=== PATIENT | female | born 1990 | race Asian ===

== ENCOUNTER 2017-01-23 09:43 | Outpatient (CLI) | payer OTHER ==
--- NOTE | 2017-01-23 10:42 | Non Stress Test Report ---
Non Stress Test Datetime Report Generated by CPN: 01/23/2017 10:42 DEMOGRAPHIC EGA NST: 40.5 INDICATION Indication for Study: Ordered by Provider Indication for Study (NST) Other: Repeat NST, Post dates VITAL SIGNS Temperature - NST: 98.1 Pulse - NST: 85 RESP - NST: 16 NBPSYS NST: 121 NBPDIA NST: 69 MONITORING Monitor Explained: Monitor Explained; Test Explained; Patient Verbalized Understanding Time on Monitor: 01/23/2017 09:56 Time off Monitor: 01/23/2017 10:30 NST Duration: 34 NST INTERVENTIONS NST Interventions: PO Hydration Physician Notified NST: Dr. Tes BABY A: [id number] BABY A Movement : Present Contraction Frequency : Irregular FHR Baseline : 150 Accelerations : 15X15 Decelerations : None Variability : Moderate 6-25bpm NST Review: Meets Criteria for Reactive NST NST Review and Verified By : BL ROULUND, RN NST Results: Reactive NST COMMENTS NST Comments: Labor signs and kick counts carenotes given to patient. All questions answered. NST REPORT Report Trigger: Send Report
== END 2017-01-23 10:34 | disposition home or self-care (01) ==
LOC: LC 09:43
PROVIDERS: ATTEND Obstetrics & Gynecology
PROC: 4A1HXCZ Monitoring of Products of Conception, Cardiac Rate, External Approach (ICD-10-PCS; principal; 2017-01-23)
DX: O48.0 Post-term pregnancy (principal); Z3A.40 40 weeks gestation of pregnancy
CPT/HCPCS: 59025

== ENCOUNTER 2017-01-25 22:38 | Inpatient (IN) | payer OTHER ==
[2017-01-25] MEDS ORDERED: RINGERS SOLUTION,LACTATED 300 ML IV ONE (22:57)
[2017-01-25] MEDS ORDERED: MAG HYDROX/AL HYDROX/SIMETH SUSP 30 ML UDCUP PO PRN (22:57)
[2017-01-25] MEDS ORDERED: ZOLPIDEM TARTRATE 5 MG TABLET PO PRN (22:57)
[2017-01-25] MEDS ORDERED: DINOPROSTONE 10 MG VAGINAL INSERT.SR PV ONE (22:57)
[2017-01-25] MEDS ORDERED: ACETAMINOPHEN 325 MG TABLET PO PRN (22:57)
[2017-01-25 23:25] LABS: ABSOLUTE EOSINOPHILS # (AUTO) 0.1 10^3/uL (0.0-0.6); ABSOLUTE LYMPHOCYTES (AUTO) 2.4 10^3/uL (0.5-4.7); ABSOLUTE MONOCYTES (AUTO) 0.7 10^3/uL (0.1-1.4); ABSOLUTE NEUT (AUTO) 7.4 10^3/uL (1.7-8.2); BASOPHILS % (AUTO) 0.4 % (0-2); EOSINOPHILS % (AUTO) 1.4 % (0-6); HEMATOCRIT 38.7 % (36.0-47.0); HEMOGLOBIN 13.1 g/dL (12.0-15.5); HGB HCT DIFFERENCE 0.6; LYMPHOCYTES % (AUTO) 22.1 % (13-45); MEAN CORPUSCULAR HGB CONC 33.8 g/dL (32.0-36.0); MEAN CORPUSCULAR VOLUME 92 fl (80-97); MONOCYTES % (AUTO) 6.8 % (3-13); RED BLOOD COUNT 4.22 10^6/uL (3.72-5.28); RED CELL DISTRIBUTION WIDTH 15.3 % (11.5-14.0); SEGMENTED NEUTROPHILS % (AUTO) 69.3 % (42-78); WHITE BLOOD COUNT 10.7 10^3/uL (4.0-10.5)
[2017-01-25] MEDS ORDERED: ZOLPIDEM TARTRATE 5 MG TABLET ONE (23:35)
[2017-01-25] MEDS ORDERED: DINOPROSTONE 10 MG VAGINAL INSERT.SR ONE (23:36)
[2017-01-25] MEDS: RINGERS SOLUTION,LACTATED 1,000 ML IV PRN (23:38)
[2017-01-25 23:42] LABS: APPEARANCE,URINE CLOUDY; BILIRUBIN,URINE NEGATIVE (NEGATIVE); GLUCOSE, URINE NEGATIVE (NEGATIVE); KETONES,URINE NEGATIVE (NEGATIVE); LEUKOCYTE ESTERASE,URINE MODERATE (NEGATIVE); NITRITE,URINE NEGATIVE (NEGATIVE); PROTEIN,URINE NEGATIVE (NEGATIVE); URINE SPECIFIC GRAVITY 1.016; UROBILINOGEN,URINE NEGATIVE mg/dL (<2.0)
[2017-01-25 23:56] LABS: URINE BARBITURATES SCREEN NEGATIVE; URINE METHADONE SCREEN NEGATIVE; URINE OPIATES LOW NEGATIVE; URINE PHENCYCLIDINE SCREEN NEGATIVE
[2017-01-26] MEDS ORDERED: OXYTOCIN/NORMAL SALINE 20 UNIT/1,000 ML RTUINJ ONE ×2 (10:23→20:10)
--- NOTE | 2017-01-26 12:41 | L&D Progress Notes ---
PROGRESS NOTES Datetime Report Generated by CPN: 01/26/2017 12:41 PROGRESS NOTE Impression Other: IOL-stable Procedures- Other: rounds Plan: Continue Present Management; Induction Informed Consent Obtained: Vaginal Delivery; Induction of Labor; Risks, Benefits and Alternatives Discussed Informed Consent Obtained: Vaginal Delivery; Induction of Labor; Risks, Benefits and Alternatives Discussed Vital Signs : Reviewed; Within Normal Limits Comment: S: reports mild abdominal discomfort but no cramping yet. O: VSS, UC 2-3, pit @ 12mu/min A: IUP @ 41w1d -stable P: continue IOL, reasses as clinicially indicated or once pitocin has reached 20mu/min. Pt. and asked questions and verbalized understanding. VAGINAL EXAM Dilatation: 2 Effacement: 70 Station: -2 MEMBRANES Membranes: Intact Membranes: Intact FETUS A FHR - Baseline: 150 Monitoring: External US Variability: Moderate 6-25bpm Decelerations: Variable FHR Category: Category II Presentation: Vertex SIGNATURE SIGNATURE: [id number];[id number] SIGNATURE: [id number] Assignment: Naomi Martinez MD Signature: with User ID: Vlad : with User ID: Vlad
--- NOTE | 2017-01-26 14:30 | L&D Progress Notes ---
PROGRESS NOTES Datetime Report Generated by CPN: 01/26/2017 14:30 PROGRESS NOTE Impression Other: IOL-progressing well Procedures: Artificial ROM; Sterile Vag Exam Plan: Continue Present Management Informed Consent Obtained: Vaginal Delivery; Induction of Labor; Risks, Benefits and Alternatives Discussed Vital Signs : Reviewed; Within Normal Limits Comment: S: comfortable but starting to feel contractions, continues to desire unmedicated O: VSS, UC 1.5-3, pit @ 16mu/min, cervix as stated above A: IOL at 41w-progressing, AROM-meconium stained fluid P: continue IOL, reassess clinically indicated earlier prn. Pain medication as desired. VAGINAL EXAM Dilatation: 4-5 Effacement: 100 Station: -1 MEMBRANES Membranes: Ruptured Amniotic Fluid Color: Meconium, Heavy FETUS A FHR - Baseline: 140 Monitoring: External US Variability: Moderate 6-25bpm Decelerations: Early FHR Category: Category I FETUS C SIGNATURE: [id number];[id number] Assignment: Naomi Martinez MD Signature: with User ID: Vlad : with User ID: Vlad
[2017-01-26] MEDS ORDERED: PROMETHAZINE HCL INJ 25 MG/1 ML VIAL ONE (15:28)
[2017-01-26] MEDS ORDERED: NALBUPHINE HCL INJ 10 MG/1 ML AMPULE ONE (15:28)
--- NOTE | 2017-01-26 15:34 | L&D Progress Notes ---
PROGRESS NOTES Datetime Report Generated by CPN: 01/26/2017 15:33 PROGRESS NOTE Impression Other: IOL-stable Procedures: Sterile Vag Exam Plan: Continue Present Management Plan Other: IV pain medication Informed Consent Obtained: Risks, Benefits and Alternatives Discussed Vital Signs : Reviewed; Within Normal Limits Comment: S: requesting pain medication at this time O: VSS, U-C 1.5-3, cervix as stated A: IOL-stable P: nubain and phenergan IV for pain control, epidural prn VAGINAL EXAM Dilatation: 5 Effacement: 100 Station: -1 FETUS C SIGNATURE: [id number];[id number] Assignment: Naomi Martinez MD Signature: with User ID: Vlad : with User ID: Vlad
[2017-01-26] MEDS ORDERED: PROMETHAZINE HCL INJ 25 MG/1 ML VIAL IV ONE (15:35)
[2017-01-26] MEDS ORDERED: NALBUPHINE HCL INJ 10 MG/1 ML AMPULE INJ ONE (15:35)
[2017-01-26] MEDS ORDERED: FENTANYL/BUPIVACAINE/NS/PF 200 MCG/100 ML RTUINJ EPI ONE (20:09)
[2017-01-26] MEDS ORDERED: EPHEDRINE SULFATE INJ 50 MG/1 ML AMPULE ONE (20:09)
[2017-01-26] MEDS ORDERED: MISOPROSTOL 0.2 MG TABLET ONE (20:09)
[2017-01-26] MEDS ORDERED: LIDOCAINE 1% INJ-PF (10 MG/ML) 30 ML SDV ONE (20:10)
[2017-01-26] MEDS ORDERED: BUPIVACAINE HCL 0.25 % INJ/PF (2.5 MG/1 ML) 30 ML VIAL ONE (20:10)
[2017-01-26] MEDS: RINGERS SOLUTION,LACTATED 1,000 ML IV PRN (21:18)
[2017-01-27] MEDS ORDERED: NA PHOS,M-B/NA PHOS,DI-BA (ADULT) 133 ML ENEMA PR PRN (01:12)
[2017-01-27] MEDS ORDERED: OXYTOCIN/NORMAL SALINE 20 UNIT/1,000 ML RTUINJ IV PRN (01:12)
[2017-01-27] MEDS ORDERED: ACETAMINOPHEN 650 MG SUPP.RECT PR PRN (01:12)
[2017-01-27] MEDS ORDERED: ACETAMINOPHEN WITH CODEINE #3 TABLET PO PRN ×2 (01:12)
[2017-01-27] MEDS ORDERED: PSEUDOEPHEDRINE HCL 30 MG TABLET PO PRN (01:12)
[2017-01-27] MEDS ORDERED: GLYCERIN/WITCH HAZEL LEAF 1 EACH MED..PAD TP PRN (01:12)
[2017-01-27] MEDS ORDERED: DIBUCAINE 1% OINTMENT 28 GM TP PRN (01:12)
[2017-01-27] MEDS ORDERED: MAGNESIUM HYDROXIDE SUSP 30 ML UDCUP PO PRN (01:12)
[2017-01-27] MEDS ORDERED: MEASLES,MUMPS&RUBELLA VACC/PF 0.5 ML VIAL SUBCUT PRN (01:12)
[2017-01-27] MEDS ORDERED: DIPH/PERTUSS(ACELL)/TETANUS VAC/PF 0.5 ML SYR (>=10YO) IM PRN (01:12)
[2017-01-27] MEDS ORDERED: PROMETHAZINE HCL 25 MG SUPP.RECT PR PRN (01:12)
[2017-01-27] MEDS ORDERED: PROMETHAZINE HCL 25 MG TABLET PO PRN (01:12)
[2017-01-27] MEDS ORDERED: ZOLPIDEM TARTRATE 5 MG TABLET PO PRN (01:12)
[2017-01-27] MEDS ORDERED: DIPHENHYDRAMINE HCL 25 MG CAPSULE PO PRN (01:12)
[2017-01-27] MEDS ORDERED: BENZOCAINE/MENTHOL AEROSOL SPRAY 56 ML TOP PRN (01:12)
[2017-01-27] MEDS ORDERED: PROMETHAZINE HCL INJ 25 MG/1 ML VIAL IV PRN (01:12)
--- NOTE | 2017-01-27 02:36 | Delivery Summary ---
Del Sum A-C Datetime Report Generated by CPN: 01/27/2017 02:36 DELIVERY PERSONNEL DELIVERY PERSONNEL: [id number];[id number];[id number] Delivery Doctor:: Naomi Martinez MD Labor and Delivery Nurse:: Donna Odonnell RNbehavioral geneticist Nurse:: Renea Carpenter RN Nursery Nurse:: Delia Figueredo RN Nursery Nurse:: Steph Velázquez RN Paraffin Plant Sweater Operator/LABOR MEDIATOR: Courtney Bryan CNA MATERNAL INFORMATION Delivery Anesthesia: Epidural Medications After Delivery: Pitocin Bolus-Please Comment; Pitocin Drip 20 Units/1000ml NSS Meds After Delivery Comment: NS with Pitocin 20 units/Liter IVF bolus per protocol Estimated Blood Loss (ml): 250 Maternal Complications: None LABOR SUMMARY EDC: 01/18/2017 00:00 No. Babies in Womb: 1 Attempted: No Labor Anesthesia: Epidural LABOR INFORMATION Reason for Induction: Post Dates Onset of Labor: 01/26/2017 14:00 Complete Dilatation: 01/26/2017 21:27 Cervical Ripening Agents: Cervidil Oxytocin: Induction Group B Beta Strep: Negative Steroids Given: None Reason Steroids Not Administered: Not Applicable MEMBRANES Membranes Rupture Method: Artificial Rupture of Membranes: 01/26/2017 14:20 Length of Rupture (hr): 10.43 Amniotic Fluid Color: Moderate Meconium Amniotic Fluid Amount: Moderate STAGES OF LABOR Stage 1 hr: 7 Stage 1 min: 27 Stage 2 hr: 3 Stage 2 min: 19 Stage 3 hr: 0 Stage 3 min: 2 Total Time in Labor hr: 10 Total Time in Labor min: 48 VAGINAL DELIVERY Episiotomy: None Laceration Extension: Second Degree Laceration Type: Perineal Laceration Repair: Yes Laceration Repair Note: repaired with 3-0 chromic in usual fashion Sponge Count Correct: N/A; Vaginal Sweep Performed Sharps Count Correct: Yes CSECTION DELIVERY Primary Indication: N/A Secondary Indication: N/A CSection Incision: N/A BABY A INFORMATION Delivery Date/Time: 01/27/2017 00:46 Method of Delivery: Vaginal Born in Route : No : N/A Forceps: N/A Vacuum Extraction: Successful Shoulder Dystocia : No ASSISTED DELIVERY BABY A Indication for Assisted Delivery: tachycardia Catheter Prior to Procedure: Yes Station Vacuum/Forcep Apply: +3 Position Vacuum/Forcep Apply: Left Occipital Anterior Vacuum Number of Pulls: 2 Vacuum Number of PopOffs: 1 Reduce Pressure btwn Ctx: Yes Vacuum Paralegal Supervisor: Loosecubeswi Total Time Vacuum Applied: 1min Vacuum/Forceps Comment: pressure in the green PRESENTATION/POSITION BABY A Presentation: Cephalic Cephalic Presentation: Vertex Vertex Position: Left Occipital Anterior Breech Presentation: N/A PLACENTA INFORMATION BABY A Placenta Delivery Time : 01/27/2017 00:48 Placenta Method of Delivery: Spontaneous Placenta Status: Delivered SCORES BABY A Heart Rate 1 min: >100 bpm Resp Effort 1 min: Good Cry Reflex Irritability 1 min: Cough or Sneeze or Pulls Away Muscle Tone 1 min: Active Motion Color 1 min: Body [place], Extremities Blue Resuscitation Effort 1 min: Tactile Stimulation SCORE 1 MIN: 9 Heart Rate 5 min: >100 bpm Resp Effort 5 min: Good Cry Reflex Irritability 5 min: Cough or Sneeze or Pulls Away Muscle Tone 5 min: Active Motion Color 5 min: Body [place], Extremities Blue Resuscitation Effort 5 min: Tactile Stimulation SCORE 5 MIN: 9 INFANT INFORMATION BABY A Gestational Age at Delivery: 41.1 Gestational Status: Late Term- 41- 41.6 Weeks Outcome : Liveborn Infant Condition : Stable Sex: Female IDENTIFICATION BABY A Infant Verification Date/Time: 01/27/2017 00:55 ID Band Number: [id number] Mother's Name Verified: Yes RN Verifying : Benigno CarpenterHaydee BLANCA Additional Verifying Personnel: JacoboMarina RN WEIGHT/LENGTH BABY A Infant Birthweight (gm): 2875 Infant Weight (lb): 6 Infant Weight (oz): 5 Length (in): 19.50 Infant Length (cm): 49.53 CORD INFORMATION BABY A No. Cord Vessels: 3 Nuchal Cord : Around Neck x1, Loose Cord Blood Taken: Yes-For Eval (Mom's Blood Type - or O+) Infant Suction: Mouth ASSESSMENT BABY A Complications: Extended Tachycardia; Multiple Variable Decels; Meconium Physical Findings at Delivery: Caput Succedaneum; Other Physical Findings- Other: small amount of redness where kiwi was applied Infant Respirations: Appears Normal Skin to Skin: Yes Gluten Settling Tender/ALS Called : No Infant Care By: RIANNA Velázquez Transferred To: Remains with Mother BABY B INFORMATION : N/A SIGNATURES Signature: with User ID: [facility]
[2017-01-27] MEDS ORDERED: IBUPROFEN 800 MG TABLET ONE (02:56)
--- NOTE | 2017-01-27 03:16 | Admission Physical ---
Datetime Report Generated by CPN: 01/27/2017 03:16 CURRENT ADMISSION Chief Complaint: Scheduled Induction of Labor Indication for Induction: Post Dates Admit Plan: Admit to Unit; Initiate Labor Induction Protocol ALLERGIES Medication Allergies: No Medication Allergies: No Known Allergies (01/25/2017) Medication Allergies: No Known Allergies (01/23/2017) Latex: No Latex Allergies Food Allergies: N/A Environmental Allergies: N/A OBSTETRICAL HISTORY EDC: 01/18/2017 00:00 : 1 Para: 0 Term: 0 : 0 SAB: 0 IAB: 0 Ectopic: 0 Livin Cesareans: 0 VBACs: 0 Multiple Births: 0 Gestational Diabetes: No Rh Sensitization: No Incompetent Cervix: No LAWRENCE: No Infertility: No ART Treatment: No Uterine Anomaly: No IUGR: No Hx Previous C/S: No Macrosomia: No Hx Loss/Stillborn: No PIH: No Hx : No Placenta Previa/Abruption: No Depression/PP Depression: No PTL/PROM: No Post Hemorrhage: No Current Procedures: Ultrasound; NST Obstetrical History Comments: G1-Current SEE RECORDS Alcohol: No Marijuana : No Cocaine: No Other Illicit Drugs: No Cigarettes: Former Smoker. [id number] Cigarette Comments: Quit April 2016 MEDICAL HISTORY Diabetes: No Blood Transfusion: No Pulmonary Disease (Asthma, TB): No Breast Disease: No Hypertension: No Valet Parker Surgery: No Heart Disease: No Hosp/Surgery: No Autoimmune Disorder: No Anesthetic Complications: No Kidney Disease: No Abnormal Pap Smear: No Neuro/Epilepsy: No Psychiatric Disorders: No Other Medical Diseases: No Hepatitis/Liver Disease: No Significant Family History: No Varicosities/Phlebitis: No Trauma/Violence : No Thyroid Dysfunction: No INFECTIOUS HISTORY Gonorrhea: No Genital Herpes: No Chlamydia: No Tuberculosis: No Syphilis: No Hepatitis: No HIV/AIDS Exposure: No Rash or Viral Illness: No HPV: No PHYSICAL EXAM General: Normal HEENT: Normal Neurologic: Normal Thyroid: Normal Heart: Normal Lungs: Normal Breast: Deferred Back: Normal Abdomen: Normal Genitourinary Exam: Normal Extremities: Normal DTRs: Normal Pelvic Type: Adequate Vital Signs: Reviewed; Within Normal Limits VAGINAL EXAM Dilatation: 5 Dilatation: 4-5 Dilatation: 2 Effacement: 100 Effacement: 100 Effacement: 70 Station: -1 Station: -1 Station: -2 MEMBRANES Membranes: Ruptured Membranes: Intact Membranes: Intact Amniotic Fluid Color: Meconium, Heavy FETUS A EGA: 41.1 Monitoring: External US FHR- Baseline: 130 Variability: Moderate 6-25bpm Accelerations: 15X15 Decelerations: None FHR Category: Category I Presentation: Vertex Admit Comment: 26yo at 41+0ega presents for IOL due to post MURRAY. Cvx 70/-2. GBS negative. Rubella Equiv - needs vaccination pp. o/w uncomplicated. Admit for cervidil cervical ripening and IOL. Anticpate . CAT I FHR tracing. EFW 8# Anticpate PLANS FOR LABOR AND DELIVERY Labor and Delivery: None Pain Management: Natural Feeding Preference: Both Benefit of Breast Feed Discussed: Yes Circumcision: N/A INFORMED CONSENT Informed Consent Obtained: Risks, Benefits and Alternatives Discussed Informed Consent Obtained: Vaginal Delivery; Induction of Labor; Risks, Benefits and Alternatives Discussed Informed Consent Obtained: Vaginal Delivery; Induction of Labor; Risks, Benefits and Alternatives Discussed Informed Consent Obtained: Vaginal Delivery; Induction of Labor; Risks, Benefits and Alternatives Discussed Signature: with User ID: [email or web address]
[2017-01-27] MEDS ORDERED: IBUPROFEN 800 MG TABLET PO SCH (06:00)
--- NOTE | 2017-01-27 09:30 | PDOC PROGRESS REPORT ---
Subjective-OB Subjective: Post Delivery Day: 26 year old. Denies any needs at this time Doing well, no c/o, breast/bottle feeding. voiding. eating well, normal lochia Physical Exam (OB) Vital Signs: Temp Pulse Resp BP Pulse Ox 98.2 F 99 16 107/56 L 98 01/27/17 08:11 01/27/17 08:11 01/27/17 08:11 01/27/17 08:11 01/27/17 08:11 Intake & Output 01/26/17 01/27/17 01/28/17 06:59 06:59 06:59 Weight 87.4 kg - Lochia Lochia Amount: Scant < 10 ml Lochia Color: Rubra/Red - Abdomen Description: Tender, Soft, Round Hernia Present: No Fundal Description: Firm, Midline Fundal Height: u/u - u/2 Objective-Diagnostic Laboratory: 01/25/17 23:09 Assessment and Plan(PN) - Assessment and Plan (1) Normal vaginal delivery Is this a current diagnosis for this admission?: Yes - Time Spent with Patient Time with patient: Less than 15 minutes Medications reviewed and adjusted accordingly: Yes - Disposition Anticipated Discharge: Home Within: within 48 hours
[2017-01-27] MEDS: PRENATAL VITAMIN W-O CA NO5/FE FUMARATE/FA CAPSULE PO SCH (09:57)
[2017-01-27] MEDS: FAMOTIDINE 20 MG TABLET PO SCH ×2 (09:57→21:54)
[2017-01-27] MEDS: IBUPROFEN 800 MG TABLET PO SCH ×2 (09:58→18:07)
[2017-01-27] MEDS: FERROUS SULFATE 325 MG TABLET PO SCH ×2 (09:58→18:06)
[2017-01-27] MEDS: DOCUSATE SODIUM 100 MG CAPSULE PO SCH ×2 (09:58→18:08)
[2017-01-27] MEDS: SENNOSIDES/DOCUSATE 8.6-50 MG 1 EACH TABLET PO SCH (09:59)
[2017-01-28] MEDS: IBUPROFEN 800 MG TABLET PO SCH ×2 (01:47→09:44)
[2017-01-28 07:36] LABS: HEMATOCRIT 30.4 % (36.0-47.0); HGB HCT DIFFERENCE 0.8; MEAN CORPUSCULAR HEMOGLOBIN 31.5 pg (27.0-33.4); MEAN CORPUSCULAR HGB CONC 34.2 g/dL (32.0-36.0); MEAN CORPUSCULAR VOLUME 92 fl (80-97); RED BLOOD COUNT 3.29 10^6/uL (3.72-5.28); RED CELL DISTRIBUTION WIDTH 15.6 % (11.5-14.0)
[2017-01-28 07:49] LABS: HEMOGLOBIN 10.4 g/dL (12.0-15.5)
[2017-01-28 08:50] VITALS: BP 103/49
--- NOTE | 2017-01-28 09:35 | PDOC PROGRESS REPORT ---
Subjective-OB Subjective: Post Delivery Day: 26 year old. Denies any needs at this time Doing well, OOB in halls, wants to go home, hsb and mother with patient, breast and bottle feeding Physical Exam (OB) Vital Signs: Temp Pulse Resp BP Pulse Ox 97.7 F 81 18 103/49 L 95 01/28/17 08:49 01/28/17 08:49 01/28/17 08:49 01/28/17 08:49 01/28/17 08:49 Intake & Output 01/27/17 01/28/17 01/29/17 06:59 06:59 06:59 Intake Total 780 Balance 780 - PIH/Pre-Eclampsia Clonus: Negative Headache: Absent Epigastric Pain: No Visual Changes: No - Lochia Lochia Amount: Small 10-25 ml Lochia Color: Rubra/Red - Abdomen Description: Soft Hernia Present: No Fundal Description: Firm Fundal Height: u/u - u/2 Objective-Diagnostic Laboratory: 01/28/17 07:25 01/28/17 07:25 WBC 11.0 H RBC 3.29 L Hgb 10.4 L D Hct 30.4 L MCV 92 MCH 31.5 MCHC 34.2 RDW 15.6 H Plt Count 206 Assessment and Plan(PN) - Assessment and Plan (1) Normal vaginal delivery Is this a current diagnosis for this admission?: Yes (2) Anemia due to acute blood loss Is this a current diagnosis for this admission?: Yes - Time Spent with Patient Time with patient: Less than 15 minutes Medications reviewed and adjusted accordingly: Yes - Disposition Anticipated Discharge: Home Within: Other - home today
--- NOTE | 2017-01-28 09:37 | PDOC DISCHARGE SUMMARY ---
Final Diagnosis Discharge Date: 01/28/17 - Final Diagnosis (1) Normal vaginal delivery Is this a current diagnosis for this admission?: Yes Discharge Data - Discharge Medication Home Medications: Vit/Iron Fumarate/FA [ Tablet] 1 each PO DAILY 01/23/17 Gestational Age: 41.1 Reason(s) for Admission: Induction of Labor Procedures: NST, Ultrasound Intrapartum Procedure(s): Spontaneous Vaginal Delivery Complication(s): Laceration-Perineal Laceration-Degree: 2nd - [place] Data Baby 1 Female at 1 minute: 9 at 5 minutes: 9 Weight: 2.863 kg Home with Mother: Yes Complications: No - Diagnosis Test Laboratory: Temp Pulse Resp BP Pulse Ox 97.7 F 81 18 103/49 L 95 01/28/17 08:49 01/28/17 08:49 01/28/17 08:49 01/28/17 08:49 01/28/17 08:49 01/25/17 01/25/17 01/28/17 22:50 23:09 07:25 RBC 4.22 3.29 L Hgb 13.1 10.4 L D Hct 38.7 30.4 L Urine Opiates Screen NEGATIVE - Discharge information/Instructions Discharge Activity: No Lifting Over 10 Pounds, No Lifting/Push/Pulling, Pelvic Rest Discharge Diet: As Tolerated, Regular Disposition: HOME, SELF-CARE Follow up with: [facility] in: 4, Weeks
[2017-01-28] MEDS: PRENATAL VITAMIN W-O CA NO5/FE FUMARATE/FA CAPSULE PO SCH (09:45)
[2017-01-28] MEDS: DOCUSATE SODIUM 100 MG CAPSULE PO SCH (09:45)
[2017-01-28] MEDS: SENNOSIDES/DOCUSATE 8.6-50 MG 1 EACH TABLET PO SCH (09:45)
[2017-01-28] MEDS: FAMOTIDINE 20 MG TABLET PO SCH (09:45)
[2017-01-28] MEDS: FERROUS SULFATE 325 MG TABLET PO SCH (09:45)
== END 2017-01-28 11:55 | disposition home or self-care (01) | DRG 775 ==
LOC: LR 22:38 → 2S 01-27 03:08
PROVIDERS: ADMIT Obstetrics & Gynecology; ATTEND Obstetrics & Gynecology
PROC: 10907ZC Drainage of Amniotic Fluid, Therapeutic from Products of Conception, Via Natural or Artificial Opening (ICD-10-PCS; 2017-01-26)
PROC: 3E0P7GC Introduction of Other Therapeutic Substance into Female Reproductive, Via Natural or Artificial Opening (ICD-10-PCS; 2017-01-26)
PROC: 3E033VJ Introduction of Other Hormone into Peripheral Vein, Percutaneous Approach (ICD-10-PCS; 2017-01-26)
PROC: 10D07Z6 Extraction of Products of Conception, Vacuum, Via Natural or Artificial Opening (ICD-10-PCS; principal; 2017-01-27)
PROC: 0KQM0ZZ Repair Perineum Muscle, Open Approach (ICD-10-PCS; 2017-01-27)
PROC: 3E0234Z Introduction of Serum, Toxoid and Vaccine into Muscle, Percutaneous Approach (ICD-10-PCS; 2017-01-28)
DX: O48.0 Post-term pregnancy (principal); D62 Acute posthemorrhagic anemia; O77.0 Labor and delivery complicated by meconium in amniotic fluid; O70.1 Second degree perineal laceration during delivery; O76 Abnormality in fetal heart rate and rhythm complicating labor and delivery; O69.81X0 Labor and delivery complicated by cord around neck, without compression, not applicable or unspecified; Z3A.41 41 weeks gestation of pregnancy; Z37.0 Single live birth; O90.81 Anemia of the puerperium; Z23 Encounter for immunization
CPT/HCPCS: 36415; 59025; 80307; 81005; 85025; 85027; 86592; 86850; 86900; 86901; 90707; 94760; J2300; J2550; J2590; J3490